=== PATIENT | female | born 1975 | race Caucasian/White ===

== ENCOUNTER 2022-02-15 09:57 | Outpatient (CLI) | payer OTHER, SELFPAY ==
[2022-02-15 10:10] LABS: Hematocrit 44.4 % (35.0-49.0); Hemoglobin 14.7 g/dL (12.0-15.0); Mean Corpuscular HGB Conc 33.1 g/dL (32.0-36.0); Mean Corpuscular Hemoglobin 29.4 pg (27.0-31.0); Mean Corpuscular Volume 88.8 fL (78.0-102.0); Mean Platelet Volume 9.9 fl (9.2-11.8); Platelet Count Result 300 K/mm3 (150-420); Red Cell Distribution Width 12.5 % (11.6-14.4); White Blood Count 7.1 K/mm3 (4.8-10.8)
[2022-02-15 10:40] LABS: Alanine Aminotransferase 27 U/L (14-59); Albumin Level 3.6 g/dL (3.4-5.0); Alkaline Phosphatase 76 U/L (46-116); Anion Gap 7 mmol/L (8-16); Aspartate Amino Transferase 18 U/L (15-37); Bilirubin,Total 0.3 mg/dL (0.00-1.00); Blood Urea Nitrogen 13 mg/dL (7-18); Calcium 8.8 mg/dL (8.5-10.1); Carbon Dioxide 27 mmol/L (21-32); Chloride 100 mmol/L (98-108); Cholesterol 206 mg/dL (0-200); Estimated Glomerular Filt Rate > 60; Glucose 96 mg/dL (70-99); HDL Direct 41 mg/dL (40-60); LDL Cholesterol Calculated 131 mg/dL (<130); Osmolality Calculated 278 mOsm/kg (285-295); Potassium 4.1 mmol/L (3.5-5.1); Sodium 134 mmol/L (136-145); Total Protein 7.2 g/dL (6.4-8.2); Triglycerides 171 mg/dL (0-150)
[2022-02-15 10:46] LABS: Thyroid Stimulating Hormone Reflex 1.74 u/IU/mL (0.36-3.74)
== END 2022-02-15 09:58 | disposition home or self-care (01) ==
LOC: CHSLAB 09:59
PROVIDERS: PCP Family Medicine; Visit Provider Family Medicine
DX: G47.10 Hypersomnia, unspecified (principal); F32.9 Major depressive disorder, single episode, unspecified; E11.9 Type 2 diabetes mellitus without complications
CPT/HCPCS: 36415; 80053; 80061; 84443; 85027

== ENCOUNTER 2022-04-10 11:15 | Outpatient (CLI) | payer OTHER, SELFPAY ==
[2022-04-10 11:27] LABS: Occult Blood Negative (Negative)
== END 2022-04-10 11:16 | disposition home or self-care (01) ==
LOC: CHSLAB 11:17
PROVIDERS: PCP Family Medicine; Visit Provider Family Medicine
DX: Z80.0 Family history of malignant neoplasm of digestive organs (principal)
CPT/HCPCS: 82272

== ENCOUNTER 2022-05-09 22:25 | Emergency (ER) | payer OTHER, SELFPAY ==
[2022-05-09] VITALS (11 sets, daily range): BP systolic 114–133; BP diastolic 77–98; PULSE 100–150; RESP 13–27; TEMP 36.5; O2SAT 96–99
--- NOTE | ~2022-05-09 | XR_ITS ---
EXAMINATION: XR chest 1V portable INDICATION: Chest pain TECHNIQUE: Portable AP chest at 2317 hours COMPARISON: 02/26/2021 FINDINGS: The lungs are free of acute opacities. No pleural effusion or pneumothorax. Calcified granu cassandra noted in the left lung base. The cardiomediastinal silhouette is normal. IMPRESSION: 1. No acute cardiopulmonary abnormality. Reviewed, dictated and finalized at location B. CAL DEVICE
--- NOTE | 2022-05-09 22:34 | ECG_ITS ---
Measurements Intervals [place] Rate: 129 P: [place]: 0 QRS: 4 QRSD: 86 T: 12 QT: 285 QTc: 418 Interpretive Statements ATRIAL FIBRILLATION WITH RAPID VENTRICULAR RESPONSE LOW QRS VOLTAGE IN PRECORDIAL LEAD ABNORMAL ECG NO PREVIOUS ECG AVAILABLE FOR COMPARISON Electronically Signed On 05-10-2022 6:27:33 WEB MARKETING STRATEGIST by Elliot Quevedo D.O.
[2022-05-09] MEDS: SODIUM CHLORIDE 0.9% IV 500 ML 999 ML IV CONT ×2 (22:44→23:20)
[2022-05-09] MEDS: METOPROLOL TARTRATE INJ 5 MG/5 ML VIAL IV PUSH (22:49)
--- NOTE | 2022-05-09 23:13 | ED.ARRPALP ---
HPI - Arrhythmia/Palpitations General Chief Complaint: Arrhythmia/Palpitations Stated Complaint: rapid heart beat Time Seen by Provider: 05/09/22 22:27 Source: patient and RN notes reviewed Mode of arrival: ambulatory Limitations: no limitations History of Present Illness complaint: rapid heart beat, palpitations and irregular heart beat Onset (ago): hour(s) (1) Duration: constant Severity: moderate Context: occurred during rest Arrhythmia history: other (none) Associated symptoms: denies other symptoms Treatments prior to arrival: vagal maneuvers Related Data Home Medications Medication Instructions Recorded Confirmed omeprazole 40 mg capsule,delayed 40 mg PO DAILY 02/26/21 05/09/22 release Allergies Allergy/AdvReac Type Severity Reaction Status Date / Time aspirin Allergy Vomiting Verified 02/15/22 07:50 isopropyl alcohol Allergy Unknown Verified 05/09/22 23:01 Penicillins Allergy Vomiting Verified 02/15/22 07:50 tramadol Allergy paralysis Verified 02/15/22 07:50 Review of Systems Review of Systems: All systems reviewed & are unremarkable except as noted in HPI and below Constitutional: Constitutional: Reports no additional constitutional complaints Eyes: Eyes: Reports no additional eye complaints ENT: Reports system reviewed and no additional complaints, except as documented Cardiovascular: Cardiovascular: Reports no additional cardiovascular complaints and Reports rapid heart rate Respiratory: Respiratory: Reports no additional respiratory complaints Gastrointestinal: Gastrointestinal: Reports no additional gastrointestinal complaints Genitourinary: Genitourinary: Reports no additional female genitourinary complaints Musculoskeletal: Musculoskeletal: Reports no additional musculoskeletal complaints Integumentary/Breasts: Skin/Breast: Reports system reviewed and no additional complaints, except as docu Neurologic: Reports system reviewed and no additional complaints, except as documented Psychiatric: Psychiatric: Reports no additional psychiatric complaints Endocrine: Endocrine: Reports no additional endocrine complaints Hematologic/Lymphatic: Hematologic/Lymphatic: Reports no additional hematologic/lymphatic complaints Allergic/Immunologic: Allergic/Immunologic: Reports no additional allergic/immunologic complaints [facility] Past Medical History Medical History Atrial fibrillation GERD (gastroesophageal reflux disease) Morbid obesity with BMI of 40.0-44.9, adult Nicotine addiction Surgical History Surgical History Delivery by section Social History Social History Smoking packs per day: 1 Smoking cigarettes per day: 20.0 Years smoked: 25 Smoking pack-years: 25.00 Smoking status: Current every day smoker Alcohol intake: never Substance use: never Additional occupation/education comments: Hospital Gender identity (if verbalized by the patient): Female Exam Const: General: healthy appearing, no acute distress and alert Nutritional Appearance: obese Orientation/consciousness: patient oriented x3 Limitations: no limitations HENMT: Head: normal to inspection Ears: external ears normal, TM's normal bilaterally and EAC's normal Face/Nose/Sinus: Normal external nose present, Normal nares present, normal facial exam and sinuses nontender Face and sinus: normal facial exam and sinuses nontender Mouth: Yes Normal oral and palatal mucosa present and Yes moist mucous membranes Teeth and gingiva: dentition normal Throat: posterior oropharynx normal Eyes: Conjunctivae: conjunctivae normal Pupils: Equal, round and reactive pupils present EOM: EOMs intact bilaterally Neck: Neck: normal visual inspection, no lymphadenopathy and no meningeal signs Chest: Chest palpation & inspection: normal inspe
[2022-05-09 23:14] LABS: Basophils Absolute Auto 0.05 K/mm3 (0.00-0.10); Basophils Percent Auto 0.5 % (0.0-1.0); Eosinophils Absolute Auto 0.16 K/mm3 (0.02-0.50); Eosinophils Percent Auto 1.7 % (1.0-6.0); Hematocrit 43.5 % (35.0-49.0); Hemoglobin 14.6 g/dL (12.0-15.0); Immature Granulocyte Absolute 0.05 K/mm3 (0.00-0.00); Immature Granulocyte Percent A 0.5 % (0.0-0.0); Lymphocytes Absolute Auto 3.39 K/mm3 (1.10-4.50); Lymphocytes Percent Auto 35.4 % (18.0-42.0); Mean Corpuscular HGB Conc 33.6 g/dL (32.0-36.0); Mean Corpuscular Hemoglobin 29.3 pg (27.0-31.0); Mean Corpuscular Volume 87.3 fL (78.0-102.0); Mean Platelet Volume 9.5 fl (9.2-11.8); Monocytes Absolute Auto 0.79 K/mm3 (0.10-0.90); Monocytes Percent Auto 8.3 % (2.0-11.0); Neutrophils Absolute Auto 5.1 K/mm3 (1.7-7.2); Neutrophils Percent Auto 53.6 % (50.0-70.0); Platelet Count Result 317 K/mm3 (150-420); Red Blood Count 4.98 M/mm3 (4.20-5.40); Red Cell Distribution Width 13.2 % (11.6-14.4); White Blood Count 9.6 K/mm3 (4.8-10.8)
[2022-05-09 23:20] LABS: Appearance Urine Clear (Clear); Color Urine Light Yellow (Yellow)
[2022-05-09 23:21] LABS: Bilirubin Urine Negative (Negative); Blood Urine Negative (Negative); Glucose Urine UA Negative (Negative); Ketones Urine Negative (Negative); Nitrate Urine Negative (Negative); Protein Urine Negative (Negative); Specific Grav Ur <= 1.005 (1.010-1.020)
[2022-05-09 23:22] LABS: Add Urine Microscopic? NO; Leukocyte Esterase Ur Negative (Negative); Urobilinogen Urine 0.2 mg/dL (0.2-1.0)
[2022-05-09 23:26] LABS: Amphetamine Screen Urine Negative (Negative); Barbiturate Screen Urine Negative (Negative); Benzodiazepines Screen Urine Negative (Negative); Cannabinoid Screen Urine Negative (Negative); Cocaine Screen Urine Negative (Negative); Methadone Screen Urine Negative (Negative); Opiate Screen Urine Negative (Negative); Phencyclidine Screen Urine Negative (Negative)
[2022-05-09 23:28] LABS: Alanine Aminotransferase 21 U/L (14-59); Albumin Level 3.3 g/dL (3.4-5.0); Alkaline Phosphatase 80 U/L (46-116); Anion Gap 11 mmol/L (8-16); Aspartate Amino Transferase 12 U/L (15-37); Bilirubin,Total 0.2 mg/dL (0.00-1.00); Blood Urea Nitrogen 11 mg/dL (7-18); Calcium 8.3 mg/dL (8.5-10.1); Carbon Dioxide 23 mmol/L (21-32); Chloride 106 mmol/L (98-108); Estimated CRCL calculation 110 ml/min; Estimated Glomerular Filt Rate > 60; Glucose 105 mg/dL (70-99); Osmolality Calculated 289 mOsm/kg (285-295); Sodium 140 mmol/L (136-145); Total Protein 7.1 g/dL (6.4-8.2)
[2022-05-09 23:31] LABS: Ethanol < 3 mg/dL (0-6)
[2022-05-09 23:32] LABS: Lactic Acid Reflex 1.6 mmol/L (0.4-2.0)
--- NOTE | 2022-05-09 23:36 | PC.NURSE ---
Call placed to [facility], spoke to Dashawn Hamlin, report given for possible transfer, will await call for Dr Ayala, hospitalist.
[2022-05-09] MEDS: METOPROLOL TARTRATE 50 MG TAB 25 MG PO (23:49)
[2022-05-09] MEDS: SODIUM CHLORIDE 0.9% IV 1,000 ML 125 ML IV CONT (23:50)
[2022-05-10] VITALS (17 sets, daily range): BP systolic 100–127; BP diastolic 66–91; PULSE 76–136; RESP 13–27; TEMP 36.6; O2SAT 94–100
[2022-05-10 00:19] LABS: Thyroid Stimulating Hormone 2.46 uIU/mL (0.36-3.74)
[2022-05-10] MEDS: dilTIAZem HCl INJ 25 MG/5 ML VIAL 20 MG IV PUSH (00:24)
--- NOTE | 2022-05-10 00:35 | PC.NURSE ---
Pt given Cardizem 20 mg slow IVP for HR increasing to 130's. After administering pt c/o lightheaded and dizzy feeling. Pt HR responded and noted 70-80 on monitor showing Afib. Pt denies any c/p or SOB, only feeling dizzy, pt HOB lowered, pt resting, will continue to monitor, ERP aware of pt sxs, IVF rate increased to give a 500ml bolus per verbal order.
--- NOTE | 2022-05-10 00:58 | PC.NURSE ---
Call back to [facility] for Dr Ayala, no call back as of yet, ERP informed, still awaiting call from Dr Ayala, Pt resting, monitor continues to show Afib, HR now 88. VSS, pt reports feeling better and has no dizziness at this time. Pt informed on wait times for call back
--- NOTE | 2022-05-10 01:20 | PC.NURSE ---
Pt reports feeling better and HR noted 95 c Afib on monitor, VSS, IVF titrated down to 125ml/hr per ERP verbal order. Continuing to monitor, continue to await call back from Dr Ayala at [facility].
--- NOTE | 2022-05-10 01:23 | PC.NURSE ---
Call back from Dr Ayala, spoke c Dr Rios, accepts for transfer. Paperwork signed for transfer.
[2022-05-10 02:18] LABS: SARS-CoV-2 RNA PCR Negative (Negative)
--- NOTE | 2022-05-10 03:02 | PC.NURSE ---
Report to [facility], pt loaded for transfer s difficulty, VSS, monitor showing controlled HR 96 Afib.
== END 2022-05-10 03:03 | disposition short-term general hospital (02) ==
PROVIDERS: Emergency Provider Emergency Medicine; PCP Family Medicine
DX: I48.91 Unspecified atrial fibrillation (principal); F17.200 Nicotine dependence, unspecified, uncomplicated; Z20.822 Contact with and (suspected) exposure to COVID-19
CPT/HCPCS: 36415; 71045; 80053; 80307; 81003; 83605; 84443; 84484; 85025; 93005; 96361; 96374; 99285; A9270; J7030; J7040; U0003; U0005

== ENCOUNTER 2022-05-10 07:53 | Observation (INO) | payer OTHER, SELFPAY ==
[2022-05-10] VITALS (15 sets, daily range): BP systolic 110–125; BP diastolic 72–87; PULSE 59–128; RESP 14–23; TEMP 35.9–36.9; O2SAT 98–100; BMI 46.4
--- NOTE | 2022-05-10 | ECHO_ITS ---
Patient Info Name: María Mireles Age: 46 years : 1975 Gender: Female Ht: 73 in Wt: 351 lbs BSA: 2.94 m2 HR: 67 bpm BP: 119 / 86 mmHg Heart Rhythm: Atrial Fibrillation Technical Quality: Poor Exam Date: 05/10/2022 12:27 PM Exam Location: [facility] Patient Status: Outpatient Admit Date: 05/10/2022 Staff Ordering Physician: Brian Mohamud MD Network Account Manager: Faby Ruiz RDCS Attending Provider: Hector Oneal MD Referring Physician: Cade STANLEY; Exam Type: CA echo dop color flow w con Study Info Indications I48.1 - Persistent atrial fibrillation Complete two-dimensional, color flow and Doppler transthoracic echocardiogram is performed with contrast to opacify the left ventricle and to improve the deliniation of the left ventricle endocardial borders. Contrast/Agitated Saline Contrast/Ag. Saline: Definity Amount: 6.00 ml Administered By: Faby Ruiz RDCS Existing IV Access: Yes IV Access Condition: patent with no signs of infiltration Reason for Poor Study: patient body habitus Summary 1. Technically difficult exam because of patient obesity, definity contrast injected. 2. Grossly normal left ventricular size and systolic function. 3. No significant valvular pathology identified on Doppler. 4. Atrial fibrillation. Left Ventricle Left ventricular chamber dimension is normal. Left ventricular systolic function is hyperdynamic, estimated at >70%. The left ventricular diastolic function is grade I diastolic dysfunction. Right Ventricle Right ventricular chamber dimension is normal. Left Atria Left atrial chamber dimension is normal. Right Atria Right atrial chamber dimension is normal. Aortic Valve The aortic valve is trileaflet. Pulmonic Valve The pulmonic valve is not well visualized. Mitral Valve The mitral valve has normal leaflets. There is no mitral valve regurgitation. Tricuspid Valve The tricuspid valve leaflets are not well visualized. Pericardium/Pleural The pericardium appears normal. Aorta The aortic root size at the sinus of Valsalva is normal. Left Ventricular Outflow Tract Name Value Normal LVOT 2D LVOT Diameter 2.00 cm LVOT Doppler LVOT Peak Gradient 4 mmHg LVOT Mean Gradient 3 mmHg LVOT VTI 22.21 cm LVOT VTI/AV VTI Ratio 0.66 LVOT Stroke Volume 70.03 ml LVOT CO 5.74 l/min LVOT CI 1.95 L/min/m2 Pulmonic Valve Name Value Normal RVOT Doppler RVOT Peak Gradient 3 mmHg PV Doppler PV Peak Gradient 3 mmH
--- NOTE | 2022-05-10 03:47 | ADMGEN ---
This patient, María Mireles, was admitted to IMU Room 205-01 at 0338. Patient/family oriented to hospital policies and general routines including ID bracelet, bed and alarms, visiting hours, pain management, procedures, bathroom and other care routines, personal items, smoking policy, room service/diet, and visiting hours. Information on how to activate the Rapid Response Team has been discussed. Patient/Family are encouraged to report perceived risks to care and to ask questions if they do not understand what they are told or what they should do.
--- NOTE | 2022-05-10 10:07 | PM.CNCAR ---
Assessment and Plan Assessment and plan (1) Atrial fibrillation: Code(s): I48.91 - Unspecified atrial fibrillation Status: Acute Assessment and Plan: New onset of atrial fibrillation. She went into it between the hours of 7:30 p.m. and 9:05 p.m. yesterday. She has had no previous sensation in her episodes like this in the past. She has a chads Vasc score 1 due to gender only. She remains in atrial fibrillation at this point. This could be driven by untreated sleep apnea. She will need an outpatient sleep study. 2D echocardiogram with Doppler will be ordered and reviewed. TSH and free T4 levels were recently performed and normal. Electrolytes were otherwise stable. I will check a magnesium level as this has not been checked. Will keep her NPO with plan for elective cardioversion later today. I will also give her a dose of enoxaparin 1 milligram/kilogram subQ x1. She will need 1 month's worth of anticoagulation and then my recommendation be anti-platelet therapy thereafter. She has a possible allergy to aspirin and therefore may end up using clopidogrel 75 mg daily. In order to assist with cardioversion, I am going to give her 1 dose of amiodarone 150 mg IV x1. Am going to avoid antiarrhythmic therapy as an outpatient though and start her on metoprolol 25 mg p.o. b.i.d. and follow over time. Obviously if atrial fibrillation becomes a recurrent problem, will reconsider antiarrhythmic therapy versus ablation. She will also need an outpatient stress test for ischemic evaluation (2) Hypersomnolence disorder: Code(s): G47.10 - Hypersomnia, unspecified Status: Acute Assessment and Plan: Probably has sleep apnea. Outpatient sleep study to be ordered. (3) Morbid obesity with BMI of 40.0-44.9, adult: Code(s): E66.01 - Morbid (severe) obesity due to excess calories; Z68.41 - Body mass index [BMI] 40.0-44.9, adult Status: Acute Assessment and Plan: Dietary and lifestyle modification for weight loss (4) GERD (gastroesophageal reflux disease): Code(s): K21.9 - Gastro-esophageal reflux disease without esophagitis Status: Acute Assessment and Plan: On PPI (5) Nicotine addiction: Code(s): F17.200 - Nicotine dependence, unspecified, uncomplicated Status: Acute Assessment and Plan: Tobacco abuse counseling performed History of Present Illness History of Present Illness Consult date/time: 05/10/22 10:07 Requesting physician: Hector Oneal MD Consult reason: atrial fibrillation Reason For Visit: a fib rvr Narrative: Date of service 05/10/2022 Requesting provider: Dr. 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 She works 12 hour shift yesterday and got home at about 730. She felt fine but about the time she got rated to go to bed she noticed that her heart rate was fast she could feel palpitations. She put her Apple watch back on and was alerting her that she was in atrial fibrillation. She waited for a period of time but her palpitations did not improve and she went to the ER for further workup evaluation. She was found to be in atrial fibrillation with rapid ventricular response. She was given metoprolol was temporarily helped and she did restore sinus rhythm but she later Will reverted back into atrial fibrillation. She was then given diltiazem and another dose of oral metoprolol without significant benefit. She was transferred here to [place] for further workup evaluation and treatment. Patient has not had any previous episodes like this. She otherwise denies any chest pain, shortness breath, syncope, presyncope, paroxysmal nocturnal dyspnea, orthopnea, unusual edema. Review of Systems Review of Systems: All systems reviewed & are unremarkable except as noted in HPI and below Constitutional: Constitutional: Denies body ache(s) and Denies chills Eyes:
[2022-05-10] MEDS: ENOXAPARIN 80 MG/0.8 ML SYRINGE 160 MG SUB-Q (10:19)
[2022-05-10] MEDS: AMIODARONE 150 MG/D5W 100 ML 150 MG/100 ML BAG 600 MG IV CONT (11:01)
[2022-05-10] MEDS: PERFLUTREN LIPID MICROSPHERES 1.5 ML VIAL DILUTED TO 10 ML TOTAL VOLUME IV PUSH (12:40)
--- NOTE | 2022-05-10 12:50 | ECG_ITS ---
Measurements Intervals [place] Rate: 107 P: [place]: 0 QRS: 11 QRSD: 84 T: 28 QT: 312 QTc: 417 Interpretive Statements ATRIAL FIBRILLATION WITH RAPID VENTRICULAR RESPONSE ABNORMAL ECG COMPARED TO ECG 05/09/2022 22:39:27 HEART RATE HAS DECREASED Electronically Signed On 05-10-2022 13:03:39 TECHNICIAN TEST SYSTEMS by Elliot Quevedo D.O.
--- NOTE | 2022-05-10 13:00 | WPDMODSED ---
Moderate Sedation Note-Pt Data Patient Data Diagnosis: New onset atrial fibrillation Present Complaint: Palpitation Procedure to be performed/Plan: DC cardioversion Allergies Allergy/AdvReac Type Severity Reaction Status Date / Time aspirin Allergy Vomiting Verified 02/15/22 07:50 isopropyl alcohol Allergy Unknown Verified 05/09/22 23:01 Penicillins Allergy Vomiting Verified 02/15/22 07:50 tramadol Allergy paralysis Verified 02/15/22 07:50 Home Medications Medication Instructions Recorded Confirmed Type omeprazole 40 mg capsule,delayed 40 mg PO DAILY 02/26/21 05/10/22 History release bupropion HCl 150 mg 24 hr tablet, 150 mg PO QAM #90 tabs 04/19/22 05/10/22 Rx extended release Sedation/Anesthesia: No previous sedation/anesthesia problems (including family history). [facility] Past Medical History Medical History Atrial fibrillation GERD (gastroesophageal reflux disease) Morbid obesity with BMI of 40.0-44.9, adult Nicotine addiction Surgical History Surgical History Delivery by section Family History Family History Father History of nephrectomy Kidney carcinoma Bladder cancer Malignant neoplasm of prostate Diabetes mellitus Mother Diabetes mellitus Anal cancer Chemotherapy adverse reaction Social History Social History Smoking packs per day: 1 Smoking cigarettes per day: 20.0 Years smoked: 25 Smoking pack-years: 25.00 Smoking status: Current every day smoker Alcohol intake: never Substance use: never Has the Lack of Transportation Kept You From Medical Appointments or From Getting Medications?: No Within the Past 12 Months, Were You Worried Whether Your Food Would Run Out Before You Got Money to Buy More?: Never True What is Your Housing Situation Today?: I Have Housing Are You Worried That in the Next 2 Months, You May Not Have Your Own Housing to Live In?: No Do You Have Trouble Paying Your Heating Or Electricity Bill?: No Do You Have Trouble Paying For Medicines?: No Are You Currently Unemployed and Looking for Work?: No Highest Level of Education Completed: Bachelor's Degree Do You Have Trouble With Childcare or the Care of a Family Member?: No Additional occupation/education comments: Hospital Gender identity (if verbalized by the patient): Female Spiritual care concerns: No Mod Sed Physical Exam Physical Exam Pre Procedural Exam: Normal: Neck, Throat, Airway, Lungs, Neuro Exam and Extremities and Variation: Appearance (Obese white female no distress), Heart Size (PMI not palpable), Heart Rate and Heart Rhythm (Irregularly irregular) Hours since solid foods: 12 Hours since liquid intake: 12 Mallampati Classification: class III Internal Medicine - PN: Obj Da Vital Signs Vital Signs: Vital Signs - 24 hr 05/10/22 03:50 05/10/22 03:47 05/10/22 04:00 Temperature 36.9 C Pulse Rate 88 88 98 Respiratory Rate 22 H 22 H Blood Pressure 125/72 Pulse Oximetry 99 99 Oxygen Delivery Room Air 05/10/22 04:00 05/10/22 05:47 05/10/22 06:00 Temperature Pulse Rate 88 111 H Respiratory Rate 22 H Blood Pressure Pulse Oximetry 99 98 Oxygen Delivery Room Air Room Air 05/10/22 08:00 05/10/22 08:00 05/10/22 08:00 Temperature 35.9 C L Pulse Rate 92 128 H Respiratory Rate 14 Blood Pressure 119/86 Pulse Oximetry 99 Oxygen Delivery Room Air 05/10/22 11:01 05/10/22 11:50 Temperature 36.6 C Pulse Rate 110 H 96 Respiratory Rate 16 Blood Pressure 120/74 Pulse Oximetry 99 Oxygen Delivery Intake/Output Intake/Output: Intake & Output 05/08/22 05/09/22 05/09/22 05/10/22 00:59 00:59 23:59 23:59 Output Total 0 Balance 0 Labs Labs: Laboratory Results - last
--- NOTE | 2022-05-10 13:11 | P.PCNCC_ITS ---
Cardiac Cath Procedure Note Date of procedure:: 05/10/22 Performing physician:: Mehrdad Cameron MD Indication:: Atrial fibrillation Brief clinical history:: This is a 46-year-old woman without previous cardiac history came into the hospital with the new onset of atrial fibrillation which occurred this morning. Plans are for DC cardioversion. Procedure Procedure performed:: DC cardioversion Sedation/Medication given:: Propofol total dosage of 80 mg given in aliquots Estimated blood loss:: 0 Procedure note:: Patient was brought to the cardiac catheterization lab holding area in the supine position defibrillator patches were placed in the AP position. She had IV access in the right arm. She was then sedated using propofol a total dosage of 80 mg was given in aliquots which provided excellent procedural sedation. She was DC cardioverted with 200 joules x1 shock in a synchronized fashion restoring sinus rhythm/sinus bradycardia Findings:: As above Conclusion:: Successful uncomplicated DC cardioversion of atrial fib restoring sinus rhythm with 200 joules x1 shock Mehrdad Cameron MD [facility]
--- NOTE | 2022-05-10 13:27 | PM.IMHP ---
H&P: HPI History of Present Illness Date/Time: 05/10/22 13:27 Chief Complaint: AFib with RVR Narrative: patient is a 46-year-old female who is being admitted for AFib with RVR. Last night when she was going to bed she noticed that her heart rate was fast she could feel palpitations.? She put her Apple watch back on and was alerting her that she was in atrial fibrillation.? She went to the ER for further workup evaluation.? She was found to be in atrial fibrillation with rapid ventricular response.? She was given metoprolol which temporarily helped and she did restore sinus rhythm but she later reverted back into atrial fibrillation.? She was then given diltiazem and another dose of oral metoprolol without significant benefit.? She was transferred here to [place] for further workup evaluation and treatment.? Patient has not had any previous episodes like this.? She otherwise denies any chest pain, shortness breath, syncope, presyncope, paroxysmal nocturnal dyspnea, orthopnea, unusual edema. Review of Systems Review of Systems: All systems reviewed & are unremarkable except as noted in HPI and below Constitutional: Constitutional: Denies body ache(s) and Denies chills Eyes: Eyes: Denies blurry vision ENT: Reports Normal hearing present Cardiovascular: Cardiovascular: Denies chest pain and Reports palpitations Respiratory: Respiratory: Denies chest congestion, Denies cough and Denies dyspnea Gastrointestinal: Gastrointestinal: Denies abdominal pain Genitourinary: Genitourinary: Denies hematuria Musculoskeletal: Musculoskeletal: Denies back pain Integumentary/Breasts: Skin/Breast: Denies dry skin Neurologic: Denies Abnormal speech present Psychiatric: Psychiatric: Denies confusion Endocrine: Endocrine: Denies excessive sweating Hematologic/Lymphatic: Hematologic/Lymphatic: Denies easy bleeding Allergic/Immunologic: Allergic/Immunologic: Denies GI upset with certain foods PMFSH Past Medical History Medical History Atrial fibrillation GERD (gastroesophageal reflux disease) Morbid obesity with BMI of 40.0-44.9, adult Nicotine addiction Surgical History Surgical History Delivery by section Family History Family History Father History of nephrectomy Kidney carcinoma Bladder cancer Malignant neoplasm of prostate Diabetes mellitus Mother Diabetes mellitus Anal cancer Chemotherapy adverse reaction Social History Social History Smoking packs per day: 1 Smoking cigarettes per day: 20.0 Years smoked: 25 Smoking pack-years: 25.00 Smoking status: Current every day smoker Alcohol intake: never Substance use: never Has the Lack of Transportation Kept You From Medical Appointments or From Getting Medications?: No Within the Past 12 Months, Were You Worried Whether Your Food Would Run Out Before You Got Money to Buy More?: Never True What is Your Housing Situation Today?: I Have Housing Are You Worried That in the Next 2 Months, You May Not Have Your Own Housing to Live In?: No Do You Have Trouble Paying Your Heating Or Electricity Bill?: No Do You Have Trouble Paying For Medicines?: No Are You Currently Unemployed and Looking for Work?: No Highest Level of Education Completed: Bachelor's Degree Do You Have Trouble With Childcare or the Care of a Family Member?: No Additional occupation/education comments: Hospital Gender identity (if verbalized by the patient): Female Spiritual care concerns: No Meds Home Medications and Allergies Home Medications Medication Instructions Recorded Confirmed Type omeprazole 40 mg capsule,delayed 40 mg PO DAILY 02/26/21 05/10/22 History release bupropion HCl 150 mg 24 hr tablet, 150 mg PO QAM #90 t
--- NOTE | 2022-05-10 13:30 | ECG_ITS ---
Measurements Intervals [place] Rate: 59 P: -4 [place]: 209 QRS: 2 QRSD: 84 T: 12 QT: 390 QTc: 387 Interpretive Statements SINUS BRADYCARDIA LOW QRS VOLTAGE IN PRECORDIAL LEADS BORDERLINE ECG COMPARED TO ECG 05/10/2022 12:57:09 SINUS BRADYCARDIA NOW PRESENT Electronically Signed On 05-10-2022 13:28:55 GOLF COURSE ASSISTANT by Elliot Quevedo D.O.
== END 2022-05-10 15:09 | disposition home or self-care (01) ==
PROVIDERS: Internal Medicine Cardiovascular Disease; Specialist; Admitting Provider Internal Medicine; Visit Provider Hospitalist
PROC: 5A2204Z Restoration of Cardiac Rhythm, Single (ICD-10-PCS; principal; 2022-05-10 13:00)
DX: I48.91 Unspecified atrial fibrillation (principal); F32.9 Major depressive disorder, single episode, unspecified; G47.10 Hypersomnia, unspecified; E66.01 Morbid (severe) obesity due to excess calories; Z68.42 Body mass index [BMI] 45.0-49.9, adult; K21.9 Gastro-esophageal reflux disease without esophagitis; R94.31 Abnormal electrocardiogram [ECG] [EKG]; F17.210 Nicotine dependence, cigarettes, uncomplicated; Z79.899 Other long term (current) drug therapy
CPT/HCPCS: 36415; 83735; 92960; 93005; 96372; 96374; 96375; C8929; G0378; G0379; J0282; J1650; J2704; J7040; Q9957

== ENCOUNTER 2022-08-09 11:57 | Outpatient (CLI) | payer OTHER, SELFPAY ==
[2022-08-09 12:12] LABS: Basophils Absolute Auto 0.05 K/mm3 (0.00-0.10); Basophils Percent Auto 0.7 % (0.0-1.0); Eosinophils Absolute Auto 0.11 K/mm3 (0.02-0.50); Eosinophils Percent Auto 1.4 % (1.0-6.0); Immature Granulocyte Absolute 0.01 K/mm3 (0.00-0.00); Immature Granulocyte Percent A 0.1 % (0.0-0.0); Lymphocytes Percent Auto 32.6 % (18.0-42.0); Mean Corpuscular HGB Conc 33.3 g/dL (32.0-36.0); Mean Corpuscular Hemoglobin 29.2 pg (27.0-31.0); Mean Corpuscular Volume 87.5 fL (78.0-102.0); Mean Platelet Volume 9.5 fl (9.2-11.8); Monocytes Absolute Auto 0.65 K/mm3 (0.10-0.90); Monocytes Percent Auto 8.5 % (2.0-11.0); Neutrophils Absolute Auto 4.3 K/mm3 (1.7-7.2); Neutrophils Percent Auto 56.7 % (50.0-70.0); Platelet Count Result 350 K/mm3 (150-420); White Blood Count 7.7 K/mm3 (4.8-10.8)
[2022-08-09 12:29] LABS: Prothrombin Time 10.9 Seconds (9.50-12.10)
== END 2022-08-09 11:58 | disposition home or self-care (01) ==
LOC: CHSLAB 11:58
PROVIDERS: PCP Family Medicine; Visit Provider Nurse Practitioner Family
DX: K92.1 Melena (principal)
CPT/HCPCS: 36415; 85025; 85610

== ENCOUNTER 2022-08-10 16:39 | Outpatient (NON) | payer OTHER, SELFPAY ==
[2022-08-10 16:50] LABS: Occult Blood Negative (Negative)
== END 2022-08-10 16:40 | disposition home or self-care (01) ==
LOC: CHSLAB 16:41
PROVIDERS: Visit Provider Nurse Practitioner Family
DX: K92.1 Melena (principal)
CPT/HCPCS: 82272

== ENCOUNTER 2023-05-05 08:36 | Outpatient (CLI) | payer OTHER, SELFPAY ==
--- NOTE | 2023-05-16 15:50 | WPDHOMESLEEP ---
Sleep Study - Home Unattended Date of Study: 05/05/23 Ordering Provider: Brian Mohamud MD Interpreting Provider: Renetta Hall, DO Home Sleep Study Type: Watch BHAVIK Height: 1.83 m Weight: 157.397 kg Body Mass Index: 47.0 Neck Circumference (inches): 16.5 [place]: 4 Reason for Sleep Study Daytime hypersomnia? Sleep History Patient is a 47-year-old female with history of atrial fibrillation, GERD, anxiety, depression, and tobacco use who underwent a home sleep test for evaluation of daytime hypersomnia.? She never awakens from sleep short of breath. She never awakens at night with heartburn, belching or cough.? She occasionally snores and rarely snores loudly enough that others complain. She never has trouble sleeping when she has a cold. She never suddenly wakes up gasping for breath during the night. She never has breathing problems at night. She rarely sweats excessively at night. She never notices her heart pounding or beating irregularly during the night. She never falls asleep during the day. She never falls asleep while driving. She never experiences loss of muscle tone with strong emotion. She never has trouble at work because of sleepiness. She rarely feels paralyzed on waking or falling asleep. She occasionally experiences vivid dreams upon waking or falling asleep. She does not feel afraid of going to sleep. She never has nightmares. She occasionally recalls her dreams. She rarely has thoughts racing through her mind. She never feels sad or depressed. She rarely feels anxiety or worry about things. She never notices parts of her body jerk. She never kicks during the night. She never feels crawling or aching feelings in her legs. She never feels leg pain at night. She never grinds her teeth during sleep and never has morning jaw pain. She occasionally feels bothered by pain during the day and is rarely awakened by pain during the night. She occasionally wakes up feeling stiff in the morning. She rarely wakes up feeling sore and achy in the morning. She occasionally wakes with pain in her neck, spine, or joints. ? Normal bedtime is around 9pm on the weekdays and same on the weekends, taking 10 to 30 minutes to fall asleep. She typically gets about 8 to 9 hours of sleep per night. Her wake up time is around 5:30 am on the weekdays and 6 am on the weekends. She typically wakes up around 3 times per night, awake about 5 minutes and she will go to the bathroom.? Habits:? Current tobacco smoker. Drinks about 4 caffeinated beverages per day. Alcohol use is about 2 drinks per week. No recreational substances.? [facility] Past Medical History Medical History Atrial fibrillation GERD (gastroesophageal reflux disease) Morbid obesity with BMI of 40.0-44.9, adult Nicotine addiction Surgical History Surgical History Delivery by section Family History Family History Father History of nephrectomy Kidney carcinoma Bladder cancer Malignant neoplasm of prostate Diabetes mellitus Mother Diabetes mellitus Anal cancer Chemotherapy adverse reaction Social History Social History Smoking packs per day: 1 Smoking cigarettes per day: 20.0 Years smoked: 25 Smoking pack-years: 25.00 Smoking status: Current every day smoker Alcohol intake: never Substance use: never Lack of Transportation: No Lack of Food: Never True Current Housing: I Have Housing Concerned About Future Housing: No Difficulty Paying Gas/Electric Bills: No Difficulty Paying for Meds: No Currently Unemployed: No Education: Bachelor's Degree Difficulty w/ Childcare or Family Care: No Living arrangements: with family Occupation/Education: occupation Additional occupation/education comments: [employer]
[2023-05-16 15:53] VITALS: BMI 47.0
== END 2023-05-06 10:46 | disposition home or self-care (01) ==
LOC: ANHCSM 08:37
PROVIDERS: PCP Family Medicine; Visit Provider Internal Medicine Cardiovascular Disease
DX: G47.33 Obstructive sleep apnea (adult) (pediatric) (principal); G47.10 Hypersomnia, unspecified
CPT/HCPCS: 95800

== ENCOUNTER 2024-03-22 08:20 | Outpatient (CLI) | payer OTHER, SELFPAY ==
--- NOTE | ~2024-03-22 | MM_ITS ---
EXAMINATION: MM screening nikia BI w ekta HISTORY: Screening mammogram TECHNIQUE: Craniocaudal and mediolateral oblique 3-D tomosynthesis images were obtained and synthetic 2-D images were generated. CAD analysis was submitted and interpreted. COMPARISON: No prior mammogram is available for comparison at this institution. BREAST PARENCHYMAL COMPOSITION:Not Dense. The breasts are almost entirely fatty FINDINGS: No suspicious mass, calcification, or architectural distortion are identified in either ariella ast to suggest malignancy. There has been no suspicious interval change. IMPRESSION: No mammographic evidence of malignancy. Recommend routine screening mammography in one year. BI-RADS Category 1: Negative Reviewed, dictated and finalized at location .
== END 2024-03-22 08:21 | disposition home or self-care (01) ==
LOC: CHSIMG 08:22
PROVIDERS: PCP Family Medicine; Visit Provider Family Medicine
DX: Z12.31 Encounter for screening mammogram for malignant neoplasm of breast (principal)
CPT/HCPCS: 77063; 77067

== ENCOUNTER 2025-05-09 09:25 | Outpatient (CLI) | payer OTHER, SELFPAY ==
--- OUTSIDE RECORDS SUMMARY | 2025-05-09 17:58 | XMS_ITS | Clinical Summary ---
Author Organization [facility] Address [address] [place] [address] Care Team Providers Care Dietary Aide Teacher Name Role Phone Tiki Grissom MD Primary Care Provider +1 [phone] Allergies Active Allergy Reactions Criticality Noted Date Comments Penicillins Hives 05/20/2020 Tramadol Anaphylaxis High 05/20/2020 Medications omeprazole 20 MG capsule Take 20 mg by mouth daily. Active albuterol sulfate HFA (VENTOLIN HFA) 108 (90 Base) MCG/ACT inhaler Inhale 2 puffs into the lungs every 4 (four) hours as needed for Wheezing or Shortness of breath. 1 Inhaler 0 Active Active Problems No known active problems Immunizations Immunization Administration Dates Next Due PFIZER COVID-19 (ORIGINAL FO RMULATION, PURPLE CAP) mRNA, LNP-S, PF, 30 MCG/0.3 ML DOSE 07/11/2020,06/20/2020 Family History Medical History Relation Comments Cancer Father Cancer Mother Diabetes Mother Heart Disease Mother Relation Status Comments Father Mother Social History Tobacco Use Types Packs/Day Years Used Date Smoking Tobacco: Every Day Smokeless Tobacco: Never Tobacco Cessation:Ready to Q uit: No; Counseling Given: Yes Alcohol Use Standard Drinks/Week Comments Yes 0 (1 standard drink = 0.6 oz pur e alcohol) PHQ-2 Answer Date Recorded PHQ-2 Score - If the patient scores above 3, please move on to questions 3-9 0 01/08/2021 Comments No Sex and Gender Information Value Date Recorded Sex Assigned at Not on file Legal Sex Female 1:50 PM ADMINISTRATIVE SERVICES MANAGER Gender Identity Not on file Sexual Orientation Not on file Last Filed Vital Signs Vital Sign Reading Time Taken Comments Blood Pressure 124/70 01/08/2021 10:43 AM CDT Pulse 64 01/08/2021 10:43 AM CDT Temperature 36 C (96.8 F) 01/08/2021 10:43 AM CDT Respiratory Rate 18 01/08/2021 10:4 3 AM CDT Oxygen Saturation 96% 01/08/2021 10: 43 AM CDT Inhaled Oxygen Concentration - - Weight 151.4 kg (333 lb 12.8 oz) 2020 10:43 AM CDT Height 182.9 cm (6') 01/08/2021 10:43 AM CDT Body Mass Index 45.27 01/08/2021 10:43 AM CDT Plan of Treatment Health Maintenance Due Date Last Done Comments Cervical Cancer Screening Pa p Smear (Age 30 to 64) Every 3 Years 1975 Colorectal Cancer Screening Colonoscopy (10 Years) 1975 Hepatitis C 1993 DTaP, Tdap and Td Vaccines ( 1 - Tdap) 1994 Hepatitis B Vaccines (1 of 3 - 19+ 3-dose series) 1994 Pneumococcal Vaccine: Pediatrics (0 to 5 Years) and At-Risk Patients (6 to 49 Years) (1 of 2 - PCV) 1994 Cervical Cancer Screening Pa p with HPV Testing (Age 30 to 64) Every 5 Years 2005 Cervical Cancer Screening wi th HPV 2005 Mammogram Screening 2015 Annual Physical 01/08/2022 01/08/2021 COVID-19 Vaccine (3 - 2024-2 6 season) 2025 07/11/2020, 06/20/2020 Influenza Adult (#1) 2025 Hepatitis A Vaccines Aged Out No long er eligible based on patient's age to complete this topic Meningococcal B Vaccine Aged Out No l onger eligible based on patient's age to complete this topic Meningococcal Vaccine Aged Out No eris javon eligible based on patient's age to complete this topic RSV Immunizations Under 20 Months Aged Out No longer eligible b ased on patient's age to complete this topic Insurance Care Teams Dietary Aide Teacher Relationship Specialty Start Date End Date Tiki Grissom MD [address] [place] [address] PCP - General FAMILY PRACTICE 01/08/21
--- OUTSIDE RECORDS SUMMARY | 2025-05-09 17:58 | XMS_ITS | Encounter Summary ---
Author Organization [facility] Address [address] [place] [address] Care Team Providers Care Pyrotechnic Assembler Name Role Phone Tiki Grissom MD Primary Care Provider [phone] [phone] Encounter Details Date Type Department Care Team (Late st Contact Info) Description 01/08/[address] 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 No / Unsure 01/08/2021 10:26 AM CDT documented as of this encounter Plan of Treatment Not on file documented as of this encounter Visit Diagnoses Not on filedocumented in this encounter Additional Health Concerns Assessment Noted Time PHQ-9 Depression Total Score: 6 01/09/20 21 10:50 AM CDT documented as of this encounter Care Teams Pyrotechnic Assembler Relationship Specialty Start Date End Date Tiki Grissom MD [address] [place] [address] PCP - General FAMILY PRACTICE 01/08/21 documented as of this encounter
--- OUTSIDE RECORDS SUMMARY | 2025-05-09 17:58 | XMS_ITS | Clinical Summary ---
Author Organization [facility] [address] Address [address] [place] [address] Care Team Providers Care Apparel Trimmings Sales Representative Name Role Phone Jh Hester DO Primary Care Provider Allergies Active Allergy Reactions Criticality Noted Date Comments Alcohol Rash Medium 06/07/2022 Aspirin Nausea & Vomiting Low 06/07/2022 Penicillins Hives Medium 05/20/2020 Tramadol Anaphylaxis High 05/20/2020 Medications buPROPion XL (WELLBUTRIN XL) 300 mg 24 hr tablet Take 1 tablet (300 mg total) by mouth daily [address] (NexIUM) 40 mg capsule Take 1 capsule (40 mg total) by mouth daily before breakfast Active aspirin 81 mg enteric coated tabletIndications :Paroxysmal atrial fibrillation (HCC) Take 1 tablet (81 mg total) by mouth daily 30 tablet 11 3 Active semaglutide (Wegovy) 0.5 mg/0.5 mL auto-injector Active metoprolol XL (TOPROL-XL) 25 mg extended release tablet Take 1 tablet by mouth once daily 90 tablet 3 5 Active Active Problems Problem Noted Date Diagnosed Date LORAINE (obstructive sleep apnea) 05/07/2024 Hypersomnolence 04/25/2023 Chronic anticoagulation 09/10/2022 Tobacco use 09/10/2022 Morbid obesity 09/10/2022 Morbid obesity with BMI of 45.0-49.9, adult 09/01 Paroxysmal atrial fibrillation 09/10/2022 Social History Tobacco Use Types Packs/Day Years Used Date Smoking Tobacco: Every Day Cigarettes Smokeless Tobacco: Never Tobacco Cessation:Ready to Q uit: Not Asked; Counseling Given: Not Answered Comments Unknown Sex and Gender Information Value Date Recorded Sex Assigned at Not on file Legal Sex Female 9:14 AM MOBILE UNIT ASSISTANT Gender Identity Not on file Sexual Orientation Not on file Last Filed Vital Signs Vital Sign Reading Time Taken Comments Blood Pressure 122/80 05/07/2024 9:14 AM MOBILE UNIT ASSISTANT Pulse 66 05/07/2024 9:14 AM MOBILE UNIT ASSISTANT Temperature - - Respiratory Rate - - Oxygen Saturation 97% 05/07/2024 9:14 AM MOBILE UNIT ASSISTANT Inhaled Oxygen Concentration - - Weight 159.7 kg (352 lb) 05/07/2024 9:14 AM MOBILE UNIT ASSISTANT Height 182.9 cm (6') 05/07/2024 9:14 AM MOBILE UNIT ASSISTANT Body Mass Index 47.74 05/07/2024 9:14 AM MOBILE UNIT ASSISTANT Plan of Treatment Health Maintenance Due Date Last Done Comments Cervical Cancer Screening 1975 Colon Cancer Screening-Colonoscopy 1975 Depression Screening 1975 Hepatitis C Screening 1975 DTaP/Tdap/Td Vaccine (1 - Tdap) 1986 Hepatitis B Screening 1993 Regular Well Visit/Exam 18-64 1993 Pneumococcal vaccine <65 (1 of 2 - PCV) 1994 Breast Cancer Screening-Mammogram 12/07/2016 016 Covid-19 Vaccine (3 - 2024- season) 03/04/202502/2021, 06/20/2020 Influenza Vaccine (#1) 2025 Procedures Procedure Name Priority Date/Time Associated Diagnosis Comments DIAGNOSTIC MAMMOGRAM BILATERAL W SALINAS Routine 12/08/2015 2:05 PM CDT from Last 3 Months or Most Recently Relevant to Health Maintenance Results * Diagnostic Mammogram Bilateral W [place] (12/08/2015 2:05 PM CDT) Anatomical Region Laterality Modality Breast Bilateral Mammography 12/08/2015 2:05 PM CDT Narrative 12/08/2015 7:54 PM CDT Vm Mammogram Performed by: SCREENING MAMM W SALINAS BI Acc#: [id number] Screening Mamm Bi Acc#: [id number] DATE OF EXAM: Dec 08 2015 CLINICAL HISTORY: Screening. Family history of breast cancer (grandmother). Benign right breast biopsy in 2005. Lower inner quadrant right breast lump that feels similar to lipoma she had in 2005. RESULT: Craniocaudal and mediolateral oblique views to include tomosynthesis demonstrate breasts composed of predominantly fatty breast tissue. No dominant mass, skin thickening, nipple retraction or suspicious cluster of microcalcifications is seen. The nipples are not in profile on any of these views bilaterally. Digital technology was employed plus computer-aided detection software (R2) was utilized in interpretation of these images. This facility utilizes a reminder system to notify patients of yearly mammograms. IMPRESSION: 1. NO FINDINGS SUSPICIOUS FOR MALIGNANCY. 2. RECOMMEND RESCREENING IN ONE YEAR. BI RADS CATEGORY 2 BENIGN FINDING. Interpreting Physician: DR MARINO CHAHAL M.D. Read on: Dec 08 2015 2:06P Transcribed by: eleazar On: Dec 08 2015 6:30P Approved Electronically by: FELA Maldonado, DR PICHARDO on: Dec 08 2015 7:54P Attending: ALAINA STOKES Requesting: ALAINA STOKES Requesting Attending Attending ID: [id number] Requesting ID: [id number] Report To 1 ID: [id number] Report To 1 Name: ALAINA STOKES Report To 1 FAX: [phone] NextGen Order #: Procedure Note Provider, MD Lawrence - 11/07/2016 Vm Mammogram Performed by: DR CONDE MAMM W SALINAS BI Acc#: [id number] Screening Mamm Bi Acc#: [id number] DATE OF EXAM: Dec 08 2015 CLINICAL HISTORY: Screening. Family history of breast cancer (grandmother). Benign rightbreast biopsy in 2005. Lower inner quadrant right breast lump that feelssimilar to lipoma she had in 2005. RESULT: Craniocaudal and mediolateral oblique views to include tomosynthesisdemonstrate breasts composed of predominantly fatty breast tissue. Nodominant mass, skin thickening, nipple retraction or suspicious cluster ofmicrocalcifications is seen. The nipples are not in profile on any ofthese views bilaterally. Digital technology was employed pluscomputer-aided detection software (R2) was utilized in interpretation ofthese images. This facility utilizes a reminder system to notify patientsof yearly mammograms. IMPRESSION: 1. NO FINDINGS SUSPICIOUS FOR MALIGNANCY. 2. RECOMMEND RESCREENING IN ONE YEAR. BI RADS CATEGORY 2 BENIGNFINDING. Interpreting Physician: DR MARINO CHAHAL M.D. Read on: Dec 08 20152:06P Transcribed by: eleazar On: Dec 08 2015 6:30P Approved Electronically by: FELA Maldonado, DR PICHARDO on: Dec 08 20157:54P Attending: ALAINA STOKES Requesting: ALAINA STOKES Requesting Attending Attending ID: [id number] Requesting ID: [id number] Report To 1 ID: [id number] Report To 1 Name: ALAINA STOKES Report To 1 FAX: [phone] NextGen Order #: Historical Provider MD BARUN MAMMO PROCEDURES Radha l Result from Last 3 Months or Most Recently Relevant to Health Maintenance Insurance [facility] HMO/PPO Address: [address] [address] [place] [address] Care Teams Apparel Trimmings Sales Representative Relationship Specialty Start Date End Date Jh Hester DO [address] [place] [address] PCP - General Family Medicine 06/07/22
== END 2025-05-09 09:26 | disposition home or self-care (01) ==
PROVIDERS: PCP Family Medicine; Visit Provider Family Medicine
DX: Z00.00 Encounter for general adult medical examination without abnormal findings (principal); Z12.11 Encounter for screening for malignant neoplasm of colon
CPT/HCPCS: 36415

== ENCOUNTER 2025-06-07 01:29 | Day surgery (SDC) | payer OTHER, SELFPAY ==
[2025-06-05 10:50] VITALS: BMI 41.1
--- OUTSIDE RECORDS SUMMARY | 2025-06-07 01:32 | XMS_ITS | Clinical Summary ---
Author Organization [facility] Address [address] [place] [address] Care Team Providers Care Conference Director Name Role Phone Tiki Grissom MD Primary Care Provider [phone] [phone] Allergies Active Allergy Reactions Criticality Noted Date [...] on file Legal Sex Female 1:50 PM ENVIRONMENTAL SERVICES LEAD Gender Identity Not on file Sexual Orientation [...] to complete this topic Insurance Care Teams Conference Director Relationship Specialty Start Date End Date Tiki Grissom MD [address] [place] [address] PCP - General FAMILY PRACTICE 01/08/21
--- OUTSIDE RECORDS SUMMARY | 2025-06-07 01:32 | XMS_ITS | Encounter Summary ---
Author Organization [facility] Address [address] [place] [address] Care Team Providers Care Robotic Technician Name Role Phone Tiki Grissom MD Primary Care Provider [phone] [phone] Encounter Details Date Type Department Care Team (Late st Contact Info) Description 01/08/2021 [employer] Technologiest Message Enc [facility] Medical Group Multispecialty [address] [address] Tiki Grissom MD [address] [place] [phone] Question Social History Tobacco Use Types [...] on file Legal Sex Female 1:50 PM DIRECT MARKETING COORDINATOR Gender Identity Not on file Sexual Orientation [...] documented as of this encounter Care Teams Robotic Technician Relationship Specialty Start Date End Date Tiki Grissom MD [address] [place] [address] PCP - General FAMILY PRACTICE 01/08/21 documented as of this encounter
--- OUTSIDE RECORDS SUMMARY | 2025-06-07 01:32 | XMS_ITS | Clinical Summary ---
Author Organization [facility] [address] Address [address] [place] [address] Care Team Providers Care Brown Sourer Name Role Phone Jh Hester DO Primary Care Provider Allergies Active Allergy Reactions Criticality Noted Date Comments Alcohol Rash Medium 06/07/2022 Penicillins Hives Medium 05/20/2020 Tramadol Anaphylaxis High 05/20/2020 Medications buPROPion XL (WELLBUTRIN XL) 300 mg 24 hr tablet Take 1 tablet (300 mg total) by mouth daily [address] (NexIUM) 40 mg capsule Take 1 capsule (40 mg total) by mouth daily before breakfast Active aspirin 81 mg enteric coated tabletIndication s:Paroxysmal atrial fibrillation (HCC) Take 1 tablet (81 mg total) by mouth daily 30 tablet 11 3 Active metoprolol XL (TOPROL-XL) 25 mg extended release tablet Take 1 tablet by mouth once daily 90 tablet 3 5 Active SEMAGLUTIDE SUBQ Inject 2.5 mg under the skin every 7 days Active semaglutide (Wegovy) 0.5 mg/0.5 mL auto-injector 05/20/20 25 Discontin ued(Alter heriberto therapy) Active Problems Problem Noted Date Diagnosed Date LORAINE (obstructive sleep apnea) 05/07/2024 Hypersomnolence 04/25/2023 Chronic anticoagulation 09/10/2022 Tobacco use 09/10/2022 Morbid obesity 09/10/2022 Morbid obesity with BMI of 40.0-44.9, adult 09/01 Paroxysmal atrial fibrillation 09/10/2022 Encounters Date Type Department Care Team Description 05/20/2025 9:30 AM WASTE EXAMINER Office Visit [facility] Cardiology [address] [place] [address] Brian Mohamud MD Paroxysmal atrial fibrillation (HCC) (Primary Dx); Morbid obesity with BMI of 40.0-44.9, adult (HCC); Chronic anticoagulation; LORAINE (obstructive sleep apnea); Lipid screening from Last 3 Months Surgical History Surgery Date Site/Laterality Comments SECTION 2000, 2002 Medical History Medical History Date Comments GERD (gastroesophageal reflux disease) Family History Medical History Relation Name Comments Cancer Father Cancer Mother Diabetes Mother Relation Name Status Comments Father Alive Mother Social History Tobacco Use Types Packs/Day Years Used Date Smoking Tobacco: Every Day Cigarettes 0.5 15 E-cigarettes Smokeless Tobacco: Never Tobacco Cessation:Ready to Q uit: Not Asked; Counseling Given: Not Answered Comments Unknown Sex and Gender Information Value Date Recorded Sex Assigned at Not on file Legal Sex Female 9:14 AM WASTE EXAMINER Gender Identity Not on file Sexual Orientation Not on file Last Filed Vital Signs Vital Sign Reading Time Taken Comments Blood Pressure 112/80 05/20/2025 9:43 AM WASTE EXAMINER Pulse 66 05/20/2025 9:43 AM WASTE EXAMINER Temperature - - Respiratory Rate - - Oxygen Saturation 98% 05/20/2025 9:43 AM WASTE EXAMINER Inhaled Oxygen Concentration - - Weight 147.9 kg (326 lb) 05/20/2025 9:43 AM WASTE EXAMINER Height 182.9 cm (6') 05/20/2025 9:43 AM WASTE EXAMINER Body Mass Index 44.21 05/20/2025 9:43 AM WASTE EXAMINER Plan of Treatment Health Maintenance Due Date Last Done Comments Cervical Cancer Screening 1975 Colon Cancer Screening-Colonoscopy 1975 Depression Screening 1975 Hepatitis C Screening 1975 DTaP/Tdap/Td Vaccine (1 - Tdap) 1986 Hepatitis B Screening 1993 Regular Well Visit/Exam 18-64 1993 Pneumococcal vaccine <65 (1 of 2 - PCV) 1994 Breast Cancer Screening-Mammogram 12/07/2016 016 Covid-19 Vaccine ( - season) 03/04/202502/2021, 06/20/2020 Influenza Vaccine (#1) 2025 Zoster Vaccine (1 of 2) 2025 Procedures Procedure Name Priority Date/Time Associated Diagnosis Comments POCT LIPID PANEL Routine 05/20/2025 9:43 AM WASTE EXAMINER Lipid screening DIAGNOSTIC MAMMOGRAM BILATERAL W SALINAS Routine 12/08/2015 2:05 PM CDT from Last 3 Months or Most Recently Relevant to Health Maintenance Results * (ABNORMAL) POCT lipid panel (05/20/2025 9:43 AM WASTE EXAMINER) Cholesterol, POC 205 <200 MG/DL HDL, POC 55 >=40 mg/dL Triglycerides, POC 120 <=149 mg/dL LDL Cholesterol POC 126 <=129 mg/dL Chol/HDL Ratio, POC 2.3 NONE Non-HDL Cholesterol, POC 150 NONE mg/dL Cholesterol Total, POC 205(A) 30 - 199 mg/dL Capillary blood 05/20/2025 9 :43 AM WASTE EXAMINER us Brian Mohamud MD POINT OF CARE TEST ORDERA BLES Final Result * Diagnostic Mammogram Bilateral W [place] (12/08/2015 2:05 PM CDT) Anatomical Region Laterality Modality Breast Bilateral Mammography 12/08/2015 2:0 5 PM CDT Narrative 12/08/2015 7:54 PM CDT Vm Mammogram Performed by: SCREENING MAMM W SALINAS BI Acc#: [id number] Screening Mamm Bi Acc#: [id number] DATE OF EXAM: Dec 08 2015 CLINICAL [...] Requesting: ALAINA STOKES Requesting Attending Attending ID: [id number] Requesting ID: [id number] Report To 1 ID: [id number] Report To 1 Name: ALAINA STOKES Report To 1 FAX: [phone] NextGen Order #: Procedure Note Provider, MD Lawrence - 11/07/2016 Vm Mammogram Performed by: SCREENING MAMM W SALINAS BI Acc#: [id number] Screening Mamm Bi Acc#: [id number] DATE OF EXAM: Dec 08 2015 CLINICAL [...] Requesting: ALAINA STOKES Requesting Attending Attending ID: [id number] Requesting ID: [id number] Report To 1 ID: [id number] Report To 1 Name: KIKE ALAINA Report To 1 FAX: [phone] NextGen Order #: us Historical Provider MD BRAUN MAMMO PROCEDURES Radha l Result from Last 3 Months or Most Recently Relevant to Health Maintenance Insurance [facility] H[facility]/PP[facility] Address: [facility] [address] [place] [address] Care Teams Brown Sourer Relationship Specialty Start Date End Date Jh Hester DO [address] [place] [address] PCP - General Family Medicine 06/07/22
[2025-06-07 09:43] VITALS: BP 115/91; PULSE 67; RESP 18; TEMP 36.8; O2SAT 100
[2025-06-07 09:46] LABS: BEDSIDEPREGUCG Negative (Negative)
[2025-06-07] MEDS: LACTATED RINGERS 1,000 ML 150 ML IV CONT (09:48)
--- NOTE | 2025-06-07 10:08 | PM.HPGS ---
History of Present Illness History of Present Illness Consent: Risks, benefits, and alternatives have been discussed and questions answered. Patient agrees to proceed with procedure. Chief complaint: Screening/Positive Cologuard Narrative: María Mireles is a 50 year old female here for first colonoscopy, shield test + Review of Systems Review of Systems: All systems reviewed & are unremarkable except as noted in HPI and below PMFSH Past Medical History Medical History (Updated 06/07/25 @ 10:09 by Henry Dukes MD) Colon cancer screening Atrial fibrillation Nicotine addiction Morbid obesity with BMI of 40.0-44.9, adult GERD (gastroesophageal reflux disease) Surgical History Surgical History Delivery by section Family History Family History Father History of nephrectomy Kidney carcinoma Bladder cancer Malignant neoplasm of prostate Diabetes mellitus Mother Diabetes mellitus Anal cancer Chemotherapy adverse reaction Social History Social History Smoking packs per day: 1 Smoking cigarettes per day: 20.0 Years smoked: 25 Smoking pack-years: 25.00 Smoking status: Current every day smoker Tobacco type: e-cigarettes/vaping Alcohol intake: never Substance use: never Substance use type: does not use Lack of Transportation: No Lack of Food: Never True Current Housing: I Have Housing Concerned About Future Housing: No Difficulty Paying Gas/Electric Bills: No Difficulty Paying for Meds: No Currently Unemployed: No Education: Bachelor's Degree Difficulty w/ Childcare or Family Care: No Living arrangements: with family 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 Gender identity (if verbalized by the patient): Female Spiritual care concerns: No Meds Home Medications and Allergies Home Medications ?Medication ?Instructions ?Recorded ?Confirmed ?Type omeprazole 40 mg capsule,delayed 40 mg PO DAILY 02/26/21 06/07/25 History release metoprolol succinate 25 mg 25 mg PO QAM #30 tabs 05/10/22 06/07/25 Rx tablet,extended release 24 hr (Toprol XL) semaglutide (weight loss) 0.25 0.25 mg (0.5 mL) subcut WEEKLY #2 02/24/24 06/07/25 Rx mg/0.5 mL subcutaneous pen mL injector (Galilea) triamcinolone acetonide 0.5 % 1 applic topical BID #15 grams 04/03/24 06/05/25 Rx topical cream bupropion HCl 300 mg 24 hr tablet, 300 mg PO DAILY #90 tabs 04/05/25 06/07/25 Rx extended release aspirin 81 mg tablet 81 mg PO DAILY 06/05/25 06/07/25 History Allergies Allergy/AdvReac Type Severity Reaction Status Date / Time isopropyl alcohol Allergy Unknown Verified 06/07/25 09:41 Penicillins Allergy Vomiting Verified 06/07/25 09:41 tramadol Allergy paralysis Verified 06/07/25 09:41 Vital Signs Vital Signs - 24 hr 06/07/25 09:43 Temperature 98.2 F Pulse Rate 67 Respiratory Rate 18 Blood Pressure 115/91 H Pulse Oximetry 100 Oxygen Delivery Room Air Exam Const: General: comfortable and no acute distress HENMT: Face/Nose/Sinus: Normal nares present Eyes: General: appearance normal, both eyes and all related structures Neck: Neck: no JVD Resp: Auscultation: clear to auscultation bilaterally Cardio: Rate: regular rate Rhythm: regular rhythm GI: Inspection: non-distended GI Palp: Yes Soft to palpation Skin: General skin exam: normal color Extrem: General: normal to inspection Psych: Mental Status: mental status grossly normal Assessment and Plan Assessment and plan (1) Colon cancer screening: Code(s): Z12.11 - Encounter for screening for malignant neoplasm of colon Status: Acute Assessment and Plan: colonoscopy she had shield +
[2025-06-07 10:24] VITALS: BP 101/58; PULSE 65; RESP 16; O2SAT 100
--- NOTE | 2025-06-07 10:25 | WPDANESEPPF ---
Anes - Initial Pre Proc Eval Procedure: Operation Date: 06/07/25 11:00 Proposed Procedures p Screening Colonoscopy - Henry Dukes MD Date/Time: 06/07/25 10:25 Surgeon: Henry Dukes MD Pre Op Diagnosis: Screening/Positive Cologuard Patient Data Age: 50 Gender: F Height: 1.85 m Weight: 143.7 kg Last Vital Signs Temp 36.8 C 06/07/25 09:43 Pulse 67 06/07/25 09:43 Resp 18 06/07/25 09:43 BP 115/91 H 06/07/25 09:43 Pulse Ox 100 06/07/25 09:43 O2 Del Method Room Air 06/07/25 09:43 Allergies Allergy/AdvReac Type Severity Reaction Status Date / Time isopropyl alcohol Allergy Unknown Verified 06/07/25 09:41 Penicillins Allergy Vomiting Verified 06/07/25 09:41 tramadol Allergy paralysis Verified 06/07/25 09:41 Home Medications ?Medication ?Instructions ?Recorded ?Confirmed ?Type omeprazole 40 mg capsule,delayed 40 mg PO DAILY 02/26/21 06/07/25 History release metoprolol succinate 25 mg 25 mg PO QAM #30 tabs 05/10/22 06/07/25 Rx tablet,extended release 24 hr (Toprol XL) semaglutide (weight loss) 0.25 0.25 mg (0.5 mL) subcut WEEKLY #2 02/24/24 06/07/25 Rx mg/0.5 mL subcutaneous pen mL injector (Wehermanvy) triamcinolone acetonide 0.5 % 1 applic topical BID #15 grams 04/03/24 06/05/25 Rx topical cream bupropion HCl 300 mg 24 hr tablet, 300 mg PO DAILY #90 tabs 04/05/25 06/07/25 Rx extended release aspirin 81 mg tablet 81 mg PO DAILY 06/05/25 06/07/25 History Laboratory Tests 06/07/25 09:44 POC Urine HCG, Qual Negative (Negative) Patient hx anesthesia problems: none Family hx anesthesia problems: none Results Review: All pre-operative results and documents have been reviewed as part of the pre-operative evaluation. [facility] Past Medical History Medical History (Updated 06/07/25 @ 10:09 by Henry Dukes MD) Colon cancer screening Atrial fibrillation Nicotine addiction Morbid obesity with BMI of 40.0-44.9, adult GERD (gastroesophageal reflux disease) Surgical History Surgical History Delivery by section Family History Family History Father History of nephrectomy Kidney carcinoma Bladder cancer Malignant neoplasm of prostate Diabetes mellitus Mother Diabetes mellitus Anal cancer Chemotherapy adverse reaction Social History Social History Smoking packs per day: 1 Smoking cigarettes per day: 20.0 Years smoked: 25 Smoking pack-years: 25.00 Smoking status: Current every day smoker Tobacco type: e-cigarettes/vaping Alcohol intake: never Substance use: never Substance use type: does not use Lack of Transportation: No Lack of Food: Never True Current Housing: I Have Housing Concerned About Future Housing: No Difficulty Paying Gas/Electric Bills: No Difficulty Paying for Meds: No Currently Unemployed: No Education: Bachelor's Degree Difficulty w/ Childcare or Family Care: No Living arrangements: with family 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 Gender identity (if verbalized by the patient): Female Spiritual care concerns: No Anes - Eval Final PreProcedure Day of Procedure 06/07/25 10:25 Patient weight: morbidly obese Heart: regular rate and rhythm Lungs: clear to auscultation Airway: Mallampati scale class III Neurological: alert and oriented Last oral intake: >/= 8 hours ASA classification: III Emergent: no Anesthetic plan: proceed Anesthesia type and monitoring: general GIVS and standard monitoring Results Review: All pre-operative results and documents have been reviewed as part of the pre-operative evaluation. Informed Consent: The patient's anesthetic plan and its attendant risks and benefits were discussed with the patient/family/POA. Questions were solicited and answers provided to the satisfaction of the patient/family/POA.
[2025-06-07 10:34] VITALS: BP 106/64; PULSE 60; RESP 16; O2SAT 100
[2025-06-07 10:44] VITALS: BP 114/74; PULSE 60; RESP 15; O2SAT 100
== END 2025-06-07 10:50 | disposition home or self-care (01) ==
PROVIDERS: Anesthesiology; PCP Family Medicine; Referring Provider Nurse Practitioner Family; Visit Provider Internal Medicine Gastroenterology
PROC: 0DJD8ZZ Inspection of Lower Intestinal Tract, Via Natural or Artificial Opening Endoscopic (ICD-10-PCS; CPT 45378; principal; 2025-06-07 11:00)
DX: Z12.11 Encounter for screening for malignant neoplasm of colon (principal); I48.91 Unspecified atrial fibrillation; K21.9 Gastro-esophageal reflux disease without esophagitis; F17.290 Nicotine dependence, other tobacco product, uncomplicated; E66.01 Morbid (severe) obesity due to excess calories; Z68.41 Body mass index [BMI] 40.0-44.9, adult; Z79.82 Long term (current) use of aspirin; Z79.85 Long-term (current) use of injectable non-insulin antidiabetic drugs; Z98.890 Other specified postprocedural states; Z80.51 Family history of malignant neoplasm of kidney; Z80.52 Family history of malignant neoplasm of bladder; Z80.42 Family history of malignant neoplasm of prostate
CPT/HCPCS: 45378; J2003; J2704; J7120